=== PATIENT | female | born 1990 | race Two or more races ===

== ENCOUNTER 2024-07-03 12:00 | Emergency (ER) | payer OTHER ==
[~2024-07-03] VITALS: Ht 180.3 cm; Wt 90.7 kg
[2024-07-03] MEDS ORDERED: NORFLEX100MG PO (15:08)
[2024-07-03] MEDS ORDERED: KETO10TA2 PO (15:08)
[2024-07-03] MEDS ORDERED: KETOROLAC TROMETHAMINE 60 MG VIAL IM ONE ×2 (15:15→15:21)
[2024-07-03] MEDS ORDERED: ORPHENADRINE CITRATE 30 MG/ML AMPUL IM ONE (15:15)
[2024-07-03] MEDS ORDERED: ORPHENADRINE CITRATE 30 MG/ML AMPUL ONE (15:21)
== END 2024-07-03 15:31 | disposition home or self-care (01) ==
LOC: ER 12:01
DX: M54.59 Other low back pain (principal); W06.XXXA Fall from bed, initial encounter; Y93.89 Activity, other specified; Y92.013 Bedroom of single-family (private) house as the place of occurrence of the external cause